=== PATIENT | male | born 1965 | race Caucasian/White ===

== ENCOUNTER 2018-01-28 09:53 | Day surgery (SDC) | payer SELFPAY ==
[~2018-01-28] VITALS: Ht 172.7 cm; Wt 90.3 kg
[~2018-01-28 09:53] MED LIST: CYCL10TA29 PO; DIA5 PO; LOR5/325 PO; METH4TAB66 PO; OXYC-870 PO; blood pressure med; stomach med
[2018-01-28] MEDS ORDERED: LIDOCAINE/SOD BICARB 8.4% SYR ID ONE (10:00)
[2018-01-28] MEDS ORDERED: NORMOSOL R SOLN(*) 1000 ML BAG 1,000 ML IV PRN (10:00)
[2018-01-28 10:09] VITALS: BP 126/89
[2018-01-28] MEDS ORDERED: ALLO100T70 PO (10:26)
[2018-01-28] MEDS ORDERED: cholesterol med (10:27)
[2018-01-28] MEDS ORDERED: LISI20TA29 PO (10:27)
[2018-01-28] MEDS ORDERED: ACID REFLUX MED (10:31)
[2018-01-28] MEDS ORDERED: ALB6.7R INH (10:31)
[2018-01-28] MEDS ORDERED: PROPOFOL EMUL(*) 10MG/ML 20 ML 40 ML ONE (10:58)
[2018-01-28] MEDS ORDERED: LIDOCAINE MPF 1% 5 ML VIAL ONE (10:58)
[2018-01-28 11:36] VITALS: BP 117/75
[2018-01-28 11:56] VITALS: BP 116/84
[2018-01-28 11:57] VITALS: BP 106/80
== END 2018-01-28 12:15 | disposition home or self-care (01) ==
LOC: OR 09:53
PROVIDERS: ATTEND Family Medicine
DX: Z12.11 Encounter for screening for malignant neoplasm of colon (principal)
CPT/HCPCS: 00812; 45378; J2001; J2704